=== PATIENT | female | born 1940 | race Caucasian/White ===

== ENCOUNTER → 2016-07-16 | Outpatient (CLI) | payer OTHER ==
[~2016-07-16] MED LIST: ACTONEL35 MG PO; ASPIRIN BUFFER325 MG PO; ASPIRIN325 MG PO; CALCIUM + D 601 EACH PO; CYMBALTA30 MG PO; FLONASE16 G1 BOTH NARES; FLONASE16 G1 NS; FUROSEMIDE40 MG PO; GAS RELIEF125 MG PO; IMODIUM A-D2 M1 PO; KEFLEX500 MG PO; KENALOG,ARISTOC80 GM TP; LASIX40 MG PO; LIPITOR40 MG PO; LISINOPRIL10 MG PO; LITE COAT ASPI325 M1 PO; METFORMIN HCL500 MG PO; OMEPRAZOLE40 M1 PO; PROCARDIA XL,AD30 MG PO; TRAMADOL HCL50 MG PO; XALATAN2.5 ML BOTH EYES; ZANTAC150 MG PO; ZESTRIL,PRINIVI10 MG PO
== END | disposition home or self-care (01) ==
LOC: RAD 08:56
DX: E04.1 Nontoxic single thyroid nodule (principal); R91.8 Other nonspecific abnormal finding of lung field; E83.52 Hypercalcemia; D35.1 Benign neoplasm of parathyroid gland
CPT/HCPCS: 76536; 78072; A9500; A9512

== ENCOUNTER 2016-08-30 07:29 | Day surgery (SDC) | payer OTHER ==
[~2016-08-30] VITALS: Ht 149.9 cm; Wt 54.8 kg
[~2016-08-30 07:29] MED LIST changes: +CYMBALTA60 MG PO; +GLUCOPHAGE500 MG PO; +IRON325 MG PO; +LORCET 5-325 M1 EACH PO; +PROCARDIA XL30 MG PO; +VENTOLIN HFA18 GM IH; +ZOFRAN4 MG PO
[2016-08-30 08:00] VITALS: BP 128/60
[2016-08-30 08:11] LABS: POINT-OF-CARE METER ID UU14174212
[2016-08-30 10:55] LABS: INTACT PARATHYROID HORMONE 497 pg/mL (10-69)
[2016-08-30 13:01] LABS: INTACT PARATHYROID HORMONE 87 pg/mL (10-69)
[2016-08-30 13:01] LABS: INTACT PARATHYROID HORMONE 65 pg/mL (10-69)
[2016-08-30] MEDS ORDERED: NORCO 5/3251 TABLET PO (13:46)
[2016-08-30 13:51] LABS: POINT-OF-CARE METER ID UU13113675
[2016-08-30 19:59] VITALS: BP 148/63
[2016-08-30 23:49] VITALS: BP 133/58
[2016-08-31 03:07] VITALS: BP 142/64
[2016-08-31 07:05] VITALS: BP 159/61
[2016-08-31 11:10] VITALS: BP 138/64
[2016-08-31 15:25] VITALS: BP 137/54
== END 2016-08-31 20:00 | disposition home or self-care (01) ==
LOC: SDC 07:29 → 2SOUTH 13:39 → 2EAST 14:53 → SDC 15:09 → 2EAST 08-31 20:00
PROVIDERS: Surgery
PROC: 0GBQ0ZZ Excision of Multiple Parathyroid Glands, Open Approach (ICD-10-PCS; principal; 2016-08-30)
DX: E21.0 Primary hyperparathyroidism (principal); D35.1 Benign neoplasm of parathyroid gland; E11.22 Type 2 diabetes mellitus with diabetic chronic kidney disease; I12.9 Hypertensive chronic kidney disease with stage 1 through stage 4 chronic kidney disease, or unspecified chronic kidney disease; N18.4 Chronic kidney disease, stage 4 (severe); M19.90 Unspecified osteoarthritis, unspecified site; Z79.84 Long term (current) use of oral hypoglycemic drugs; Z79.82 Long term (current) use of aspirin
CPT/HCPCS: 82310; 82948; 83970; 88305; 93005; 94640; 94640 76; 94799; G0378; J0330; J0690; J1170; J2250; J2710; J3010; S0020

== ENCOUNTER 2017-05-27 07:04 | Day surgery (SDC) | payer OTHER ==
[~2017-05-27] VITALS: Ht 149.9 cm; Wt 61.7 kg
[~2017-05-27 07:04] MED LIST changes: +ARTIFICIAL TEAR15 M1 BOTH EYES; -LISINOPRIL10 MG PO; +NORCO 5/3251 TABLET PO; +RESTASIS MULTI5.5 ML BOTH EYES; +ROCALTROL0.25 MCG PO; +ZESTRIL20 MG PO
== END 2017-05-27 09:09 | disposition home or self-care (01) ==
LOC: PAIN 07:04
PROVIDERS: Anesthesiology Pain Medicine
DX: M47.816 Spondylosis without myelopathy or radiculopathy, lumbar region (principal); F17.200 Nicotine dependence, unspecified, uncomplicated; M54.16 Radiculopathy, lumbar region; M41.9 Scoliosis, unspecified; M40.04 Postural kyphosis, thoracic region; M43.10 Spondylolisthesis, site unspecified; E11.9 Type 2 diabetes mellitus without complications; I10 Essential (primary) hypertension; F41.9 Anxiety disorder, unspecified; Z88.0 Allergy status to penicillin; Z88.1 Allergy status to other antibiotic agents; Z88.4 Allergy status to anesthetic agent; Z88.6 Allergy status to analgesic agent; Z88.8 Allergy status to other drugs, medicaments and biological substances; Z88.2 Allergy status to sulfonamides
CPT/HCPCS: 82948; J1030; J2250; J3010; S0020